=== PATIENT | female | born 1945 | race African-American/Black ===

== ENCOUNTER 2019-05-25 10:47 | Emergency (ER) | payer MEDICARE, OTHER ==
[~2019-05-25] VITALS: Ht 165.1 cm; Wt 79.0 kg
[2019-05-25 10:56] VITALS: BP 148/76; PULSE 69; RESP 18; Ht 165.1 cm; Wt 79.0 kg
--- NOTE | 2019-05-25 12:36 | ERD ---
ER Documentation Chief Complaint Chief Complaint AP RAD BACK X 3 DAYS, NO APETITE HPI 74-year-old female, previously healthy, presents the emergency department, complaining of intermittent right upper quadrant abdominal pain that started 3 days ago. No history of previous episodes. The pain is colicky, 4/10, associated with decreased appetite. The patient denies history of fever, chills, diarrhea or constipation, respiratory symptoms, no rashes. The patient has not taken any medications for her symptoms. The patient denies history of abdominal surgeries. ROS All systems reviewed and are negative except as per history of present illness. Medications Home Meds Active Scripts Ranitidine Hcl* (Zantac*) 150 Mg Tablet, 150 MG PO BID PRN for EPIGASTRIC PAIN, #30 TAB Prov:RACHNA ANNE MD 05/25/19 Acetaminophen* (Tylenol*) 325 Mg Tablet, 2 TAB PO Q6 PRN for PAIN AND OR ELEVATED TEMP, #20 TAB Prov:RACHNA ANNE MD 05/25/19 Allergies Allergies: Coded Allergies: Sulfa (Sulfonamide Antibiotics) (Verified Allergy, Mild, 09/11/10) codeine (Verified Allergy, Mild, STOMACH UPSET, 09/11/10) erythromycin base (Verified Allergy, Mild, 09/11/10) propoxyphene (Verified Allergy, Mild, 09/11/10) Uncoded Allergies: DARVAN (Allergy, Mild, STOMACH UPSET, 10/22/09) SULFA (Allergy, Mild, ITCHING, 10/22/09) PMhx/Soc History of Surgery: Yes (RIGHT 3RD FINGER JOINT REPLACEMENT 2009 LEFT KNEE SX 06/2010) Anesthesia Reaction: No Hx Neurological Disorder: No Hx Respiratory Disorders: Yes (pneumonia) Hx Cardiac Disorders: No Hx Psychiatric Problems: Yes (depression) Hx Miscellaneous Medical Probl: No Hx Alcohol Use: No Hx Substance Use: No Hx Tobacco Use: No FmHx Family History: coronary disease Physical Exam Vitals Vital Signs Date Temp Pulse Resp B/P (MAP) Pulse Ox O2 O2 Flow FiO2 Time Delivery Rate 05/25/19 97.8 69 18 148/76 99 10:56 (100) Physical Exam Patient alert, oriented, vital signs stable. HEAD: Normocephalic, atraumatic. EYES: PERRLA, EOMI, Sclera and conjunctiva appear normal. NOSE: Clear and patent nostrils. EARS: Canals clear, tympanic membranes WNL. MOUTH: normal lips and tongue, no oral lesions. THROAT: Normal oropharynx, no tonsillar exudates. NECK: Supple, No lymphadenopathy. Full ROM without pain or tenderness. HEART: RRR, no rubs, murmurs, clicks or gallops. LUNGS: Clear to auscultation. ABDOMEN: Soft, minimal tenderness to deep palpation, otherwise, no masses or hepatosplenomegaly. EXTREMITIES: No edema bilaterally. BACK: Full ROM, no deformity, normal back exam NEURO: Cranial nerves grossly intact, no motor or sensory deficit SKIN: No rashes, no petechia. Result Diagram: 05/25/19 1252 05/25/19 1252 Results 24 hrs Laboratory Tests Test 05/25/19 12:52 White Blood Count 4.8 10^3/ul Red Blood Count 4.28 10^6/ul Hemoglobin 11.8 g/dl Hematocrit 36.6 % Mean Corpuscular Volume 85.5 fl Mean Corpuscular Hemoglobin 27.6 pg Mean Corpuscular Hemoglobin Concent 32.2 g/dl Red Cell Distribution Width 13.5 % Platelet Count 281 10^3/UL Mean Platelet Volume 9.8 fl Immature Granulocytes % 0.200 % Neutrophils % 37.3 % Lymphocytes % 53.3 % Monocytes % 7.3 % Eosinophils % 1.3 % Basophils % 0.6 % Nucleated Red Blood Cells % 0.0 /100WBC Immature Granulocytes # 0.010 10^3/ul Neutrophils # 1.8 10^3/ul Lymphocytes # 2.6 10^3/ul Monocytes # 0.4 10^3/ul Eosinophils # 0.1 10^3/ul Basophils # 0.0 10^3/ul Nucleated Red Blood Cells # 0.0 10^3/ul Urine Color YELLOW Urine Clarity CLEAR Urine pH 6.0 Urine Specific [place] 1.017 Urine Ketones NEGATIVE mg/dL Urine Nitrite NEGATIVE mg/dL Urine Bilirubin NEGATIVE mg/dL Urine Urobilinogen NEGATIVE mg/dL Urine Leukocyte Esterase NEGATIVE [place]/ul Urine Hemoglobin NEGATIVE mg/dL Urine Glucose NEGATIVE mg/dL Urine Total Protein NEGATIVE mg/dl Sodium Level 143 mmol/L Potassium Level 3.8 mmol/L Chloride Level 107 mmol/L Carbon Dioxide Level 27 mmol/L Anion Gap 9 Blood Urea Nitrogen 13 mg/dl Creatinine 0.80 mg/dl Est Glomerular Filtrat Rate mL/min mL/min Glucose Level 121 mg/dl Calcium Level 10.0 mg/dl Total Bilirubin 0.4 mg/dl Direct Bilirubin 0.00 mg/dl Indirect Bilirubin 0.4 mg/dl Aspartate Amino Transf (AST/SGOT) 27 IU/L Alanine Aminotransferase (ALT/SGPT) 18 IU/L Alkaline Phosphatase 46 IU/L Total Protein 8.0 g/dl Albumin 4.3 g/dl Globulin 3.70 g/dl Albumin/Globulin Ratio 1.16 Lipase 116 U/L Patient: TYE HIGGINBOTHAM : 1945 Age: 74 Sex: F MR #: [id number] DOS: 05/25/19 1236 Ordering MD: RACHNA ANNE MD Location: E/R Room/Bed: PROCEDURE: XR chest. CLINICAL INDICATION: Abdominal pain TECHNIQUE: A single portable view of the chest was obtained. COMPARISON: 07/07/2016 FINDINGS: The lungs are clear. There is no pleural effusion or pneumothorax. The cardiac and mediastinal contours are within normal limits. IMPRESSION: 1. No acute pulmonary abnormality. Procedures/MDM vital signs stable, physical examination unremarkable. Differential diagnosis include but not limited to: UTI, colitis, gastroenteritis, kidney stones, irrit able bowel syndrome, inflammatory bowel syndrome, malabsorption syndrome, cholelithiasis, food intolerance, medication side effect, pancreatitis, diverticulitis, bowel obstruction. Labs requested and reviewed: CBC: no evidence of anemia or leukocytosis, platelets normal. CMP: Normal electrolytes, normal kidney function, normal liver function, normal lipase, no evidence of diabetes or metabolic acidosis. Urine: No evidence of infection. Physical examination and clinical presentation consistent most likely with abdominal pain without evidence of acute abdomen. During the ED course the patient remained stable, no new complaints. Results and clinical impression discussed with the patient who agrees with management. The patient is stable to be treated outpatient and will be discharged home; some side effects of prescribed medications (headache, rash, nausea, vomiting, diarrhea, drowsiness, habituation, bleeding, hypertension, interactions with other medications) were reviewed. The patient was informed that the evaluation in the emergency department has been done to rule out an acute emergency, therefore, chronic conditions like malignancy or other diseases have not been evaluated; therefore, the patient was instructed to follow up with the primary care provider in the next 48h. If symptoms persist, worsen or new symptoms develop, then patient should return to the ED immediately. Instructions explained and given directly by me to the patient with acknowledgment and demonstrated understanding. Disclaimer: Inadvertent spelling and grammatical errors are likely due to EHR/dictation software use and do not reflect on the overall quality of patient care. Also, please note that the electronic time recorded on this note does not necessarily reflect the actual time of the patient encounter. Departure Diagnosis: Primary Impression: Abdominal pain Condition: Stable RACHNA ANNE MD May 25, 2019 12:36
[2019-05-25] MEDS ORDERED: RANI150T35 PO (14:00)
[2019-05-25] MEDS ORDERED: ACET325T33 PO (14:00)
== END 2019-05-26 14:23 | disposition home or self-care (01) ==
LOC: E/R 10:47
DX: R10.11 Right upper quadrant pain (principal); Z96.691 Finger-joint replacement of right hand
CPT/HCPCS: 71045; 80053; 81003; 83690; 85025